=== PATIENT | female | born 1985 | race American Indian/Alaskan Native ===

== ENCOUNTER 2020-01-13 14:05 | Emergency (ER) | payer SELFPAY ==
[2020-01-13 14:24] VITALS: BP 122/72
--- NOTE | 2020-01-13 15:31 | Emergency Department Report ---
[facility] Chief Complaint: Eye Problems Stated Complaint: LFT EYE PINK/PAIN Time Seen by Provider: 01/13/20 15:27 Duration: 2 Days Side: Left Severity: mild Symptoms: Yes Eye Itching, Yes Eye Redness, No Eye Pain, No Mucous Drainage, No Purulent Drainage, No Blurred Vision, No Preceding URI, No H/O Allergic Rhinitis, No Contact Lens Use, No Trauma, No Fever, No Headache Other History: This is a 34-year-old female nontoxic well in appearance with no signs of distress presents to the ED with left eye crusting and itching with redness. Stated her daugther has been diagnosed with "pink eye". Patient denies any eye pain or foreign body sensation. Patient denies any other symptoms. Denies any blurry vision or visual changes. Denies any fever, chills, headache, nausea, vomiting, chest pain or SOB. Denies any other complaints. Denies any allergies. ED Review of Systems ROS: Stated complaint: LFT EYE PINK/PAIN Other details as noted in HPI Constitutional: denies: chills, fever Eyes: eye discharge. denies: eye pain, vision change ENT: denies: ear pain, throat pain Respiratory: denies: cough, shortness of breath, wheezing Cardiovascular: denies: chest pain, palpitations Endocrine: no symptoms reported Gastrointestinal: denies: abdominal pain, nausea, diarrhea Genitourinary: denies: urgency, dysuria, discharge Musculoskeletal: denies: back pain, joint swelling, arthralgia Skin: denies: rash, lesions Neurological: denies: headache, weakness, paresthesias Psychiatric: denies: anxiety, depression Hematological/Lymphatic: denies: easy bleeding, easy bruising ED Past Medical Hx - Past Medical History Previous Medical History?: No Additional medical history: Bronchitis - Surgical History Past Surgical History?: Yes Additional Surgical History: 2009 - Social History Smoking Status: Never Smoker Substance Use Type: None - Medications Home Medications: Home Medications Medication Instructions Recorded Confirmed Last Taken Type Ibuprofen [Motrin] 800 mg PO Q8H PRN #20 tablet 12/30/14 Unknown Rx Sulfamethoxazole/Trimethoprim 1 each PO BID #14 tablet 12/30/14 Unknown Rx [Bactrim Ds] traMADoL [Ultram] 50 mg PO Q6HR PRN #14 tablet 02/06/15 Unknown Rx Cyclobenzaprine HCl [Flexeril 5mg] 5 mg PO TID #20 tablet 03/14/15 Unknown Rx Ibuprofen [Motrin] 800 mg PO Q8H #30 tablet 03/14/15 Unknown Rx traMADoL [Ultram 50 MG tab] 50 mg PO Q6HR PRN #20 tablet 03/14/15 Unknown Rx Polymyxin B Sulf/Trimethoprim 2 drops OS TID #1 drops 01/13/20 Unknown Rx [Polytrim Eye Drops] [facility] Exam - Exam General: Vital signs noted. No distress. Alert and acting appropriately. Eye Exam: Neither Injection, Neither Chemosis, Neither Abnormal Pupil, Neither EOMI, Neither Eye Foreign Body, Neither Lid Foreign Body, Neither Mucous Discharge, Neither Purulent Discharge, Neither Fluorescein Uptake, Neither Fluorescein Uptake (slit lamp), Neither Cell/Flare (slit lamp), Neither Corneal Edema, Neither Photophobia HEENT: No Nasal Congestion, No Pharyngeal Erythema Remainder of HEENT: Normal Lungs: Yes Clear Lung Sounds, Yes Good Air Exchange, No Wheezes, No Stridor, No Cough, No Nasal Flaring, No Retractions, No Use of Accessory Muscles ED Course Vital Signs 01/13/20 14:22 Temperature 98.4 F Pulse Rate 68 Respiratory 18 Rate Blood Pressure 122/72 O2 Sat by Pulse 98 Oximetry - Reevaluation(s) Reevaluation #1: 01/13/20 15:29 Patient is speaking in full sentences with no signs of distress noted. ED Medical Decision Making - Medical Decision Making Patient was instructed to Follow-up with a primary care doctor in 3-5 days or if symptoms worsen and continue return to emergency room as soon as possible. At time of discharge, the patient does not seem toxic or ill in appearance. No acute signs of distress noted. Patient agrees to discharge treatment plan of care. No further questions noted by the patient. Critical care attestation.: If time is entered above; I have spent that time in minutes in the direct care of this critically ill patient, excluding procedure time. ED Disposition Clinical Impression: Conjunctivitis, left eye Qualifiers: Conjunctivitis type: acute Acute conjunctivitis type: bacterial Qualified Code(s): H10.32 - Unspecified acute conjunctivitis, left eye Disposition: - TO HOME OR SELFCARE Is pt being admited?: No Does the pt Need Aspirin: No Condition: Stable Instructions: Conjunctivitis (ED) Additional Instructions: Follow-up with a primary care doctor in 3-5 days or if symptoms worsen and continue return to emergency room as soon as possible. Prescriptions: Polymyxin B Sulf/Trimethoprim [Polytrim Eye Drops] 2 drops OS TID #1 drops Referrals: PRIMARY CARE, [Referring] - 3-5 Days SHIRA GARDNER MD [Staff Physician] - 3-5 Days VLAD CABRERA MD [Staff Physician] - 3-5 Days [facility] [Outside] - 3-5 Days Forms: Work/School Release Form(ED)
== END 2020-01-13 15:53 | disposition home or self-care (01) ==
LOC: ED 14:05
DX: H10.32 Unspecified acute conjunctivitis, left eye (principal); Z79.899 Other long term (current) drug therapy
CPT/HCPCS: 99282